=== PATIENT | female | born 1970 | race Caucasian/White ===

== ENCOUNTER 2023-05-18 11:24 | Outpatient (OUT) | payer BC, SELFPAY ==
--- NOTE | 2023-05-18 11:36 | MM_ITS ---
Patient: STEVE HINDS Exam Date: 05/18/2023 : 1970 Gender:F Ordering : Non-Staff Physician Admission #: [id number] Family : DENNIS HARPER Order #: [id number] CLICK HERE TO VIEW EXAM RADIOLOGY REPORT PROCEDURE: MM TOMOSYNTHESIS SCREENING BI COMPARISON: [facility] MAMM SCREEN [place] W CAD, 12/09/2020. MG MAMM SCREEN 3D [place] CAD, 12/22/2021. INDICATIONS: Screening mammogram Z12.31 Calculator Name NCI Breast Cancer Risk Assessment Tool 5 Year Breast Cancer Risk 2.00% Lifetime Breast Cancer Risk 14.50% Personal Breast Cancer No Personal Ovarian Cancer No Treatments None Family Cancers Sister with breast cancer at age 48; Grandmother-maternal with breast cancer at age ~64; Aunt-maternal with breast cancer at age ~65; Aunt-maternal with breast cancer at age ~65; Mother with leukemia cancer at age 47; Father with lung cancer at age 68; Grandmother-maternal with leukemia cancer at age ~72. LOCATION: [facility] BREAST COMPOSITION: Heterogeneously dense,which may obscure small masses. FINDINGS: DIAGNOSTIC CATEGORY 1--NEGATIVE. NO CHANGE FROM COMPARISON ASSESSMENT. Scattered benign-appearing calcifications are present. Scattered benign-appearing lymph nodes are present. RIGHT BREAST: No significant suspicious finding. LEFT BREAST: No significant suspicious finding. RECOMMENDATIONS: ROUTINE MAMMOGRAM AND CLINICAL EVALUATION IN 12 MONTHS. PLEASE NOTE: A NORMAL MAMMOGRAM DOES NOT EXCLUDE THE POSSIBILITY OF BREAST CANCER. A CLINICALLY SUSPICIOUS PALPABLE LUMP SHOULD BE BIOPSIED. Dictated by: Denilson Ham MD on 05/19/2023 at 07:18 Approved by: Denilson Ham MD on 05/19/2023 at 07:20
== END 2023-05-18 11:25 | disposition home or self-care (01) ==
LOC: MAMMO 11:30
DX: Z12.31 Encounter for screening mammogram for malignant neoplasm of breast (principal); Z80.3 Family history of malignant neoplasm of breast; Z80.1 Family history of malignant neoplasm of trachea, bronchus and lung; Z80.6 Family history of leukemia
CPT/HCPCS: 77063; 77067

== ENCOUNTER 2024-05-24 07:25 | Outpatient (OUT) | payer OTHER, BC, SELFPAY ==
--- NOTE | 2024-05-24 | MM_ITS ---
Patient Name: STEVE HINDS MR#: [id number] : 1970 Exam Date: 05/24/2024 Ordering Doctor: Non-Staff Physician RADIOLOGY REPORT PROCEDURE: MM TOMOSYNTHESIS SCREENING BI COMPARISON: MG MAMM SCREEN 3D [place] CAD, 12/22/2021. MM TOMOSYNTHESIS SCREENING BI, 05/18/2023. INDICATIONS: SCREENING MAMMOGRAM Calculator Name NCI Breast Cancer Risk Assessment Tool 5 Year Breast Cancer Risk 2.10% Lifetime Breast Cancer Risk 14.20% Personal Breast Cancer No Personal Ovarian Cancer No Treatments None Family Cancers Sister with breast cancer at age 48; Grandmother-maternal with breast cancer at age ~64; Aunt-maternal with breast cancer at age ~65; Aunt-maternal with breast cancer at age ~65; Mother with leukemia cancer at age 47; Father with lung cancer at age 68; Grandmother-maternal with leukemia cancer at age ~72. LOCATION: [facility] BREAST COMPOSITION: The breasts are heterogeneously dense,which may obscure small masses. FINDINGS: DIAGNOSTIC CATEGORY 2--BENIGN FINDING. NO CHANGE FROM COMPARISON. Scattered benign-appearing calcifications are present. Scattered benign-appearing lymph nodes are present. RIGHT BREAST: No significant suspicious finding. LEFT BREAST: No significant suspicious finding. RECOMMENDATIONS: ROUTINE MAMMOGRAM AND CLINICAL EVALUATION IN 12 MONTHS. PLEASE NOTE: A NORMAL MAMMOGRAM DOES NOT EXCLUDE THE POSSIBILITY OF BREAST CANCER. A CLINICALLY SUSPICIOUS PALPABLE LUMP SHOULD BE BIOPSIED. Dictated by: Denilson Ham MD on 05/24/2024 at 11:32 Approved by: Denilson Ham MD on 05/24/2024 at 11:33
== END 2024-05-24 07:26 | disposition home or self-care (01) ==
DX: Z12.31 Encounter for screening mammogram for malignant neoplasm of breast (principal); Z80.3 Family history of malignant neoplasm of breast; Z80.6 Family history of leukemia; Z80.1 Family history of malignant neoplasm of trachea, bronchus and lung
CPT/HCPCS: 77063; 77067